=== PATIENT | female | born 1950 | race Hispanic/Latino ===

== ENCOUNTER 2023-01-08 02:09 | Observation (INO) | payer MEDICARE, OTHER ==
[~2023-01-08] VITALS: Ht 154.9 cm; Wt 73.0 kg
[2023-01-08] VITALS (7 sets, daily range): BP systolic 114–143; BP diastolic 62–70
[~2023-01-08 02:09] MED LIST: ACTOS45 MG PO; CEFDINIR300 MG PO; GLIPIZIDE-METF1 EAC2 PO; HYDROCHLOROTHIA25 MG PO; LEVOTHYROXINE25 MCG PO; LOVASTATIN40 MG PO; MECLIZINE HCL12.5 MG PO; METFORMIN HCL500 MG PO; ONDANSETRON ODT4 MG PO; OXYBUTYNIN CHLO15 MG PO; Z.0.COZAAR25 MG PO
[2023-01-08] MEDS ORDERED: ASPIRIN 81 MG CHEW TAB PO ONE (02:30)
[2023-01-08] MEDS ORDERED: ACETAMINOPHEN 325 MG TAB PO ONE (02:30)
[2023-01-08] MEDS ORDERED: FAMOTIDINE 20 MG/2 ML VIAL IV ONE ×2 (02:30→02:40)
[2023-01-08] MEDS ORDERED: METOPROLOL TARTRATE INJ 1 MG/ML VIAL IV SCH (02:30)
[2023-01-08] MEDS ORDERED: ONDANSETRON HCL INJ 2MG/ML 2ML 2 MG/ML VIAL IV PRN ×2 (02:30→03:15)
[2023-01-08] MEDS ORDERED: NITROGLYCERIN 2% OINT 1 GM PKT TOP ONE (02:30)
[2023-01-08] MEDS ORDERED: ASPIRIN 81 MG CHEW TAB ONE (02:39)
[2023-01-08] MEDS ORDERED: ONDANSETRON HCL INJ 2MG/ML 2ML 2 MG/ML VIAL ONE (02:39)
[2023-01-08] MEDS ORDERED: ACETAMINOPHEN 325 MG TAB ONE (02:40)
[2023-01-08] MEDS ORDERED: NITROGLYCERIN 2% OINT 1 GM PKT ONE (02:40)
[2023-01-08] MEDS ORDERED: INSULIN REGULAR, HUMAN 100 UNIT/1 ML ONE (02:58)
[2023-01-08] MEDS ORDERED: INSULIN REGULAR, HUMAN 100 UNIT/1 ML IV ONE (03:00)
[2023-01-08] MEDS ORDERED: DEXTROSE 50% SYRINGE 50 ML IV PRN ×2 (03:15→10:15)
[2023-01-08] MEDS ORDERED: ENALAPRILAT IV INJ 1.25 MG/ML VIAL IV PRN (03:15)
[2023-01-08] MEDS ORDERED: ENOXAPARIN INJ 80 MG/0.8 ML SYR SC ONE (03:15)
[2023-01-08] MEDS ORDERED: DIPHENHYDRAMINE HCL INJ 50 MG/ML VIAL IV PRN (03:15)
[2023-01-08] MEDS ORDERED: CLONIDINE HCL 0.1 MG TAB PO PRN (03:15)
[2023-01-08] MEDS ORDERED: METOPROLOL TARTRATE INJ 1 MG/ML VIAL ONE (03:37)
[2023-01-08] MEDS ORDERED: CETIRIZINE HCL10 MG PO (04:57)
[2023-01-08] MEDS ORDERED: METOPROLOL SUCC25 MG PO (04:57)
[2023-01-08] MEDS ORDERED: TRESIBA FL200 UNIT/1 SQ (04:57)
[2023-01-08] MEDS ORDERED: NITROGLYCERIN 2% OINT 1 GM PKT TOP SCH (06:00)
[2023-01-08 07:15] LABS: CHOL/HDL RATIO 2.7 (3.0-3.6); CREATINE KINASE 104 IU/L (29-168)
[2023-01-08] MEDS ORDERED: INSULIN REGULAR, HUMAN 100 UNIT/1 ML SQ SCH (07:30)
[2023-01-08] MEDS ORDERED: ACETAMINOPHEN 325 MG TAB PO PRN (08:00)
[2023-01-08] MEDS ORDERED: LISINOPRIL 10 MG TAB PO SCH (09:00)
[2023-01-08] MEDS: FAMOTIDINE 20 MG TAB PO SCH ×2 (10:00→20:42)
[2023-01-08] MEDS: LISINOPRIL 10 MG TAB PO SCH ×2 (11:00→20:42)
[2023-01-08] MEDS ORDERED: INSULIN LISPRO 100 UNIT/1 ML 3ML VIAL SQ SCH ×3 (11:30→16:30)
[2023-01-08] MEDS: LORATADINE 10 MG TAB PO SCH (13:21)
[2023-01-08] MEDS: MECLIZINE HCL 12.5 MG TAB PO SCH ×2 (14:03→20:42)
[2023-01-08 14:29] LABS: CREATINE KINASE 216 IU/L (29-168)
[2023-01-08 15:15] LABS: FREE T4 (FREE THYROXINE) 0.93 ng/dL (0.8-1.8); THYROID STIMULATING HORMONE 1.788 uIU/mL (0.350-4.940)
[2023-01-08] MEDS: INSULIN LISPRO 100 UNIT/1 ML 3ML VIAL SQ SCH ×3 (16:30→20:51)
[2023-01-08] MEDS ORDERED: INSULIN GLARGINE 100 UNITS/ML VIAL SQ SCH ×2 (21:00)
[2023-01-08] MEDS ORDERED: METOPROLOL SUCCINATE 25 MG TAB XL PO SCH (21:00)
[2023-01-08] MEDS ORDERED: INSULIN DEGLUDEC 60 UNIT SC SCH (21:00)
[2023-01-09 00:53] VITALS: BP 116/62
[2023-01-09 04:00] VITALS: BP 116/64
[2023-01-09] MEDS ORDERED: LEVOTHYROXINE SODIUM 25 MCG TABLET PO SCH (06:00)
[2023-01-09] MEDS: INSULIN LISPRO 100 UNIT/1 ML 3ML VIAL SQ SCH ×4 (07:30→12:02)
[2023-01-09 07:53] VITALS: BP 115/58
[2023-01-09] MEDS: LORATADINE 10 MG TAB PO SCH (08:27)
[2023-01-09] MEDS: LISINOPRIL 10 MG TAB PO SCH (08:27)
[2023-01-09] MEDS: FAMOTIDINE 20 MG TAB PO SCH (08:27)
[2023-01-09] MEDS: MECLIZINE HCL 12.5 MG TAB PO SCH (08:27)
[2023-01-09 08:32] VITALS: BP 115/58
[2023-01-09] MEDS ORDERED: METOPROLOL SUCCINATE 25 MG TAB XL PO SCH (09:00)
[2023-01-09 11:54] VITALS: BP 143/67
== END 2023-01-09 12:48 | disposition home or self-care (01) ==
LOC: FSED 02:27 → ERHOLD 03:08 → MED/SURG3 04:34
PROVIDERS: ADMIT Internal Medicine; ATTEND Internal Medicine
DX: R00.2 Palpitations (principal); I16.0 Hypertensive urgency; E11.65 Type 2 diabetes mellitus with hyperglycemia; Z79.4 Long term (current) use of insulin; Z20.822 Contact with and (suspected) exposure to COVID-19; I25.10 Atherosclerotic heart disease of native coronary artery without angina pectoris; E11.42 Type 2 diabetes mellitus with diabetic polyneuropathy; F41.9 Anxiety disorder, unspecified; E11.69 Type 2 diabetes mellitus with other specified complication; E78.5 Hyperlipidemia, unspecified; Z79.899 Other long term (current) drug therapy
CPT/HCPCS: 36415 ×2; 71046; 80061; 82550; 82553; 82948 ×2; 83036 ×2; 84439; 84443; 84484; 93005; 93306; 99284; G0378 ×2; J1650; J2405; J8597 ×2; U0002

== ENCOUNTER 2023-02-15 16:25 | Emergency (ER) | payer MEDICARE, OTHER ==
[~2023-02-15] VITALS: Ht 154.9 cm; Wt 79.2 kg
[~2023-02-15 16:25] MED LIST changes: +CETIRIZINE HCL10 MG PO; +METOPROLOL SUCC25 MG PO; +TRESIBA FL200 UNIT/1 SQ
[2023-02-15] MEDS ORDERED: ONDANSETRON HCL INJ 2MG/ML 2ML 2 MG/ML VIAL IV STA ×2 (16:56→17:49)
[2023-02-15] MEDS ORDERED: FAMOTIDINE 20 MG/2 ML VIAL IV STA (16:56)
[2023-02-15] MEDS ORDERED: KETOROLAC TROMETHAMINE 30 MG/ML VIAL IV STA (16:56)
[2023-02-15] MEDS ORDERED: KETOROLAC TROMETHAMINE 30 MG/ML VIAL ONE (17:00)
[2023-02-15] MEDS ORDERED: SODIUM CHLORIDE 0.9% 1000ML 1,000 ML ONE (17:00)
[2023-02-15] MEDS ORDERED: ONDANSETRON HCL INJ 2MG/ML 2ML 2 MG/ML VIAL ONE ×3 (17:00→18:05)
[2023-02-15] MEDS ORDERED: SODIUM CHLORIDE 0.9% 1000ML 1,000 ML IV SCH ×2 (17:00→18:00)
[2023-02-15] MEDS ORDERED: FAMOTIDINE 20 MG/2 ML VIAL IV ONE (17:01)
[2023-02-15] MEDS ORDERED: LOSARTAN POTAS100 MG PO (17:22)
[2023-02-15] MEDS ORDERED: TRULICITY1.5 MG/0.5 (17:22)
[2023-02-15] MEDS ORDERED: NOVOLOG MI100 UNIT/1 SC (17:22)
[2023-02-15] MEDS ORDERED: DICYCLOMINE HCL 20 MG/2 ML VIAL IM ONE ×3 (18:00→18:05)
[2023-02-15] MEDS ORDERED: PROMETHAZINE HCL (IM) 25 MG/ML VIAL IM ONE (18:21)
[2023-02-15] MEDS ORDERED: PROMETHAZINE 12.5MG/ NACL 0.9% 12.5 MG/50 ML BAG IV ONE (18:30)
[2023-02-15] MEDS ORDERED: ONDANSETRON ODT4 MG PO (20:20)
[2023-02-15] MEDS ORDERED: FAMOTIDINE20 MG PO (20:21)
[2023-02-15 20:30] VITALS: O2SAT 97
== END 2023-02-15 21:11 | disposition home or self-care (01) ==
LOC: FSED 16:30
DX: R11.2 Nausea with vomiting, unspecified (principal); K52.9 Noninfective gastroenteritis and colitis, unspecified; R10.10 Upper abdominal pain, unspecified; E11.65 Type 2 diabetes mellitus with hyperglycemia; I10 Essential (primary) hypertension; R94.2 Abnormal results of pulmonary function studies
CPT/HCPCS: 74176; 80048; 80076; 81003; 82553; 84484; 85025; 96374; 96375; 99284; J0500; J1885; J2405; J2550; J7030

== ENCOUNTER 2024-09-03 07:50 | Emergency (ER) | payer MEDICARE, OTHER ==
[~2024-09-03] VITALS: Ht 157.5 cm; Wt 78.0 kg
[~2024-09-03 07:50] MED LIST changes: +FAMOTIDINE20 MG PO; +LOSARTAN POTAS100 MG PO; +NOVOLOG MI100 UNIT/1 SC; +TRULICITY1.5 MG/0.5
[2024-09-03 08:00] VITALS: TEMP 97.9
[2024-09-03] MEDS: SODIUM CHLORIDE 0.9% 1000ML 1,000 ML IV ONE ×2 (08:36→09:56)
[2024-09-03] MEDS: ONDANSETRON HCL INJ 2MG/ML 2ML 2 MG/ML VIAL IV STA (08:36)
[2024-09-03 10:02] VITALS: PULSE 63; RESP 18
[2024-09-03] MEDS ORDERED: ONDANSETRON ODT4 MG PO (12:59)
[2024-09-03] MEDS ORDERED: BENZONATATE100 MG PO (12:59)
[2024-09-03 13:05] VITALS: BP 181/80; PULSE 65; RESP 18; O2SAT 98
== END 2024-09-03 13:15 | disposition home or self-care (01) ==
LOC: FSED 08:08
DX: R11.2 Nausea with vomiting, unspecified (principal); K52.9 Noninfective gastroenteritis and colitis, unspecified; N28.9 Disorder of kidney and ureter, unspecified; R05.9 Cough, unspecified; I10 Essential (primary) hypertension; E11.65 Type 2 diabetes mellitus with hyperglycemia; E78.5 Hyperlipidemia, unspecified
CPT/HCPCS: 71046; 80048; 80053; 85025; 99284; J2405; J7030

== ENCOUNTER 2025-06-04 14:30 | Emergency (ER) | payer MEDICARE ==
[~2025-06-04] VITALS: Ht 165.1 cm; Wt 77.6 kg
[~2025-06-04 14:30] MED LIST changes: +BENZONATATE100 MG PO
[2025-06-04] MEDS ORDERED: SODIUM CHLORIDE 0.9% 1000ML 1,000 ML ONE (15:19)
[2025-06-04] MEDS: SODIUM CHLORIDE 0.9% 1000ML 1,000 ML IV ONE (16:06)
[2025-06-04] MEDS: SODIUM CHLORIDE FLUSH 10 ML SYR IV ONE (16:06)
[2025-06-04] MEDS: KETOROLAC TROMETHAMINE 30 MG/ML VIAL IV STA (16:07)
[2025-06-04 17:07] VITALS: PULSE 56; RESP 16; TEMP 97.4; O2SAT 100
== END 2025-06-04 17:07 | disposition home or self-care (01) ==
LOC: FSED 14:50
DX: R19.7 Diarrhea, unspecified (principal); K57.90 Diverticulosis of intestine, part unspecified, without perforation or abscess without bleeding; E86.0 Dehydration; E86.1 Hypovolemia; R10.84 Generalized abdominal pain; Z11.52 Encounter for screening for COVID-19
CPT/HCPCS: 0223U; 74176; 80048; 80076; 85025; 96374; 99284; J1885; J7030 ×2